=== PATIENT | male | born 1985 | race Hispanic/Latino ===

== ENCOUNTER 2017-08-07 09:43 | Emergency (ER) | payer SELFPAY ==
[~2017-08-07] VITALS: Ht 182.9 cm; Wt 83.0 kg
[2017-08-07] MEDS ORDERED: CEPHALEXIN500 MG PO (11:50)
[2017-08-07 12:00] VITALS: BP 120/68
[2017-08-07] MEDS ORDERED: NAPROSYN500 MG PO (13:23)
== END 2017-08-07 12:16 | disposition home or self-care (01) | DRG 605 ==
LOC: ED 09:43
DX: S91.332A Puncture wound without foreign body, left foot, initial encounter (principal); S81.032A Puncture wound without foreign body, left knee, initial encounter; S01.83XA Puncture wound without foreign body of other part of head, initial encounter; W18.31XA Fall on same level due to stepping on an object, initial encounter; Y92.008 Other place in unspecified non-institutional (private) residence as the place of occurrence of the external cause